=== PATIENT | female | born 1955 | race Caucasian/White ===

== ENCOUNTER 2016-07-22 09:00 | Observation (INO) | payer OTHER ==
[2016-07-22] MEDS ORDERED: LIDOCAINE 1% 5 ML SDV ONE (09:18)
[2016-07-22] MEDS ORDERED: LIDOCAINE 1% 5 ML SDV ID PRN (09:56)
[2016-07-22] MEDS ORDERED: LR 1,000 ML IV ONE (09:56)
[2016-07-22] MEDS ORDERED: fentaNYL 100 MCG/2 ML INJ ONE ×2 (10:14→11:18)
[2016-07-22] MEDS ORDERED: DEXAMETHASONE 4 MG/ML VIAL ONE (10:14)
[2016-07-22] MEDS ORDERED: PROPOFOL/EMULSION 500 MG/50 ML BOTTLE IV ONE (10:14)
[2016-07-22] MEDS ORDERED: MIDAZOLAM 2 MG/2 ML VIAL ONE (10:15)
[2016-07-22] MEDS ORDERED: ONDANSETRON 4 MG/2 ML VIAL ONE (10:15)
[2016-07-22] MEDS ORDERED: LIDOCAINE 2% 100 MG/5 ML SYR ONE (10:15)
[2016-07-22] MEDS ORDERED: LIDOCAINE 2% JELLY 5 ML TUBE ONE (10:15)
[2016-07-22] MEDS ORDERED: SILVER NITRATE APPLICATOR 1 APPL TP ONE (10:19)
[2016-07-22] MEDS ORDERED: KETOROLAC 30 MG/1 ML SDV ONE (10:27)
[2016-07-22] MEDS ORDERED: RANITIDINE 50 MG/2 ML VIAL ONE (10:29)
[2016-07-22] MEDS ORDERED: PROPOFOL 200 MG/20 ML VIAL ONE (10:46)
[2016-07-22] MEDS ORDERED: traMADol 50 MG TAB PO PRN (11:16)
--- NOTE | 2016-07-22 12:02 | GOP ---
[f rep st] OPERATIVE REPORT DATE OF OPERATION: 07/22/2016 SURGEON: Padmini Kendrick MD ANESTHESIA: IV general. ANESTHESIOLOGIST: Joao Dougherty. PREOPERATIVE DIAGNOSIS: Postmenopausal vaginal bleeding with thickened endometrial stripe and inconclusive biopsy in the office. POSTOPERATIVE DIAGNOSIS: Postmenopausal vaginal bleeding with thickened endometrial stripe and inconclusive biopsy in the office. PROCEDURE PERFORMED: Diagnostic hysteroscopy, dilation and curettage. FINDINGS: Small midline uterus. No obvious abnormal tissue noted on hysteroscopy, one possible small polyp in lower uterine segment on right. Scant tissue returned at the time of curettage. On 2nd insertion of hysteroscope there was noted to be a large fluid deficit at the time of insertion of camera concerning for uterine perforation. SPECIMENS: Endometrial curettings. ESTIMATED BLOOD LOSS: Minimal. INDICATIONS: The patient is a 60-year-old, G2, P0-0-2-0, who has been postmenopausal since age 49 and with a history of bilateral salpingo- oophorectomy at age 51. She was recently vacationing in [place] and had episode of heavy vaginal bleeding. This was her first episode of postmenopausal vaginal bleeding. She had an ultrasound demonstrating a thickened stripe to 9 mm. An endometrial biopsy was performed in the office with inconclusive results with possible abnormal papillary tissue. It was recommended the patient proceed with hysteroscopy, D and C for a definitive biopsy and diagnosis. Risks and benefits of the procedure were discussed including pain, bleeding, infection, inconclusive results with need for additional procedures, injury to uterus/vagina/cervix or other organs with possible need for additional procedures. DESCRIPTION OF PROCEDURE: The patient was brought to the operating room. A time-out was performed with all parties in agreement. IV general was initiated. She was prepped and draped in the normal sterile fashion in dorsal lithotomy with Jose Antonio stirrups. A final time-out was performed. A speculum was placed in the vagina. The cervix was grasped with a single-tooth tenaculum on the anterior lip. The cervix was easily dilated to 6 mm using Hegar dilators. The 5 mm diagnostic hysteroscope was introduced. The cavity appeared normal as noted with some possible polyp tissue at the right lower uterine segment. The fluid deficit at this time was 40 cc. The camera was removed. A small curette was then introduced, and there was scant return of tissues. As the goal of the procedure was to get a definitive diagnosis, the decision was made to proceed with repeat hysteroscopy and performed a D&C with the Truclear handpiece to get more extensive tissue sample. However, upon reintroducing the camera, it was noted that there was a very sudden increase in the fluid deficit from 40 mL to 480 mL, and the cavity was not distending, and there was concern for a uterine perforation, so the procedure was abandoned at this time. It is believed that the uterine perforation occurred during re-entry of the camera on the second attempt. All instruments were removed. Hemostasis was noted. The patient was awakened and brought to the recovery room in stable condition. She will be observed overnight in the hospital. COMPLICATIONS: Uterine perforation. FLUID DEFICIT: 480 mL normal saline /[id number]/MODL MTDD
[2016-07-22] MEDS ORDERED: OXYCODONE/APAP 5/325 TAB ONE ×2 (12:50→15:29)
--- NOTE | 2016-07-22 13:01 | PDGENHP ---
History and Physical - Chief Complaint observation after hysteroscopy - History of Present Illness Pt is a 60 yo who underwent hysteroscopy, D&C today for PMVB with thickened stripe and inconclusive biopsy in the office. Her procedure was complicated by uterine perforation during the 2nd insertion of the hysteroscope. History Information - Allergies/Home Medication List Allergies/Adverse Reactions: ibuprofen Allergy (Unknown, Verified 09/09/10 17:16) AVOIDS RT GASTRIC BYPASS HAYFEVER Allergy (Mild, Uncoded 09/09/10 17:16) STUFFY NOSE/ITCHY EYES Home Medications: CELEBREX 05/04/10 [Last Taken Unknown] Vicodin 05/04/10 [Last Taken Unknown] Estrace 07/20/16 [Last Taken Unknown] Herbals/Supplements -Info Only 07/20/16 [Last Taken Unknown] Tramadol HCl 07/20/16 [Last Taken Unknown] I have personally reviewed and updated: family history, medical history, social history, surgical history - Past Medical History hypertension Additional medical history: chronic back pain - Surgical History Reports: cholecystectomy Additional surgical history: Gastric bypass. Bilateral salpingo-oophorectomy. Tonsillectomy. Shoulder sugery. Wrist surgery - Family History Positive for: non-pertinent - Social History Smoking Status: Former smoker Alcohol Use: None Drug Use: None (, ARISTIDES) Review of Systems ROS: 10pt was reviewed & negative except for what was stated in HPI & below Physical Exam Temp Pulse Resp BP Pulse Ox 36.4 C 75 22 H 125/78 H 98 07/22/16 11:26 07/22/16 11:26 07/22/16 11:35 07/22/16 11:31 07/22/16 11:35 O2 (L/minute) 2 Constitutional: no apparent distress Ears, Nose, Mouth, Throat: moist mucous membranes Cardiovascular: regular rate and rhythym Respiratory: no respiratory distress Gastrointestinal: soft, non-tender abdomen, no palpable masses Skin: warm Musculoskeletal: full muscle strength Neurologic: AAOx3 Psychiatric: interacting appropriately Assessment & Plan Assessment: Uterine perforation during hysteroscopy. No reason to suspect visceral injury. Currently hemodynamically stable with normal abdominal exam and no vaginal bleeding. Plan: Monitor patient overnight Get CBC now and repeat tomorrow Clear liquid diet, ok to have regular dinner if continues to be asymptomatic Vitals q4h Monitor vaginal bleeding Continue home medications for pain control: Tramadol and Latonia Likely home tomorrow if no evidence of bleeding, infection.
[2016-07-22 15:33] LABS: % IMMATURE GRANULYOCYTES 0.3 % (0.0-1.1); ABSOLUTE IMMATURE GRANULOCYTES 0.03 10^3/uL (0.00-0.10); ADD DIFF? NO; ADD MORPH? NO; ADD SCAN? NO; ATYPICAL LYMPHOCYTE FLAG 10 (0-99); FRAGMENT RBC FLAG 0 (0-99); HEMATOCRIT 41.1 % (38.0-47.0); HEMOGLOBIN 13.4 g/dL (12.6-16.3); LEFT SHIFT FLG 0 (0-99); LIPEMIA HEMOLYSIS FLAG 80 (0-99); MEAN CELL HEMOGLOBIN 29.6 pg (27.9-34.1); MEAN CELL HEMOGLOBIN CONCENTR. 32.6 g/dL (32.4-36.7); MEAN CELL VOLUME 90.9 fL (81.5-99.8); MEAN PLATELET VOLUME 8.9 fL (8.7-11.7); PLATELET CLUMPS FLAG 0 (0-99); PLATELET COUNT 278 10^3/uL (150-400); RED BLOOD CELL COUNT 4.52 10^6/uL (4.18-5.33); RED CELL DISTRIBUTION WIDTH 14.8 % (11.5-15.2)
[2016-07-22] MEDS: HYDROCODONE/APAP 5/325 TAB PO PRN (22:08)
[2016-07-23 05:23] LABS: HEMATOCRIT 37.2 % (38.0-47.0); HEMOGLOBIN 12.2 g/dL (12.6-16.3); MEAN CELL HEMOGLOBIN CONCENTR. 32.8 g/dL (32.4-36.7); MEAN CELL VOLUME 91.4 fL (81.5-99.8); RED BLOOD CELL COUNT 4.07 10^6/uL (4.18-5.33); RED CELL DISTRIBUTION WIDTH 14.8 % (11.5-15.2)
[2016-07-23] MEDS: HYDROCODONE/APAP 5/325 TAB PO PRN ×2 (06:46→10:30)
[2016-07-23 08:08] VITALS: BP 132/68; PULSE 87; RESP 12; TEMP 97.9; O2SAT 95
--- NOTE | 2016-07-23 09:29 | SOAPPROG ---
SOAP Progress Note Assessment/Plan: Assessment: POD#1 s/p hysteroscopy, D&C complicated by uterine perforation Today doing well including no vaginal bleeding, no significant pain, tolerating regular diet, normal abdominal exam. H/H appropriate given IV fluids, no evidence of intra-abdominal bleeding WBC appropriate given s/p surgery, no significant increase suggestive of visceral injury Plan: Discharged home Given strict precautions, see discharge summary 07/23/16 09:25 Subjective: Slept well. Took 1 norco last night and one this morning for some lower abdominal soreness, pain well controlled with this regimen. No vaginal bleeding. Is passing gas but no BM, states this is normal for her not to go daily. Tolerated eggs this morning, no nausea or vomiting. Overall feeling really well, ready to go home. Objective: Vital Signs Temp Pulse Resp BP Pulse Ox 36.6 C 87 12 132/68 H 95 07/23/16 08:00 07/23/16 08:00 07/23/16 08:00 07/23/16 08:00 07/23/16 08:00 Laboratory Results 07/23/16 04:55 07/22/16 07/23/16 07/24/16 05:59 05:59 05:59 Intake Total 1890 Output Total 1355 Balance 535 Gen: NAD Resp: unlabored CV: reg rate Abd: soft, nontender, non distended Ext: no edema, warm ICD10 Worksheet Patient Problems: Problems Problem Status Onset Postmenopausal vaginal bleeding Acute
--- NOTE | 2016-07-23 09:50 | GDS ---
[f rep st] DISCHARGE SUMMARY ADMISSION DIAGNOSIS: Observation after hysteroscopy, dilation and curettage procedure, complicated by uterine perforation. DISCHARGE DIAGNOSIS: Observation after hysteroscopy, dilation and curettage procedure, complicated by uterine perforation. PROCEDURES: Hysteroscopy, dilation and curettage. CONSULTATIONS: None. HOSPITAL COURSE: The patient was brought to the hospital on the morning of July 22 for a scheduled hysteroscopy, dilation and curettage, as she had recently had her first episode of postmenopausal vaginal bleeding. She had been found to have a thickened uterine stripe of 9 mm. A biopsy in the office was inconclusive and was suggestive of possible abnormal cells, so the decision was made to proceed with hysteroscopy D and C to get a better tissue sample. The procedure was complicated by a uterine perforation that was believed to have occurred during the 2nd placement of the hysteroscope. The procedure was immediately abandoned upon this occurrence. The decision was made to admit the patient overnight for observation. While in the hospital, she did very well. She had minimal pain. No vaginal bleeding. She was tolerating a regular diet, and no laboratory evidence of intraabdominal injury or visceral injury. DISCHARGE INSTRUCTIONS: She will be discharged home. She was given strict precautions at home for no heavy lifting, no soaking in the bathtub, and no intercourse for 4 weeks. She was also given precautions to call for any worsening vaginal bleeding, abdominal pain, nausea, vomiting, fevers, chills, or any other concerning symptoms. DISCHARGE MEDICATIONS: [place] 5/325 mg, #30 tablets, refills 0. Of note, the patient cannot take NSAIDS as had gastric bypass surgery, and she currently takes both Vicodin and tramadol at home for her back pain. FOLLOWUP: She will follow up in the office with Dr. Kendrick in 2-3 weeks. /[id number]/MODL MTDD
== END 2016-07-23 10:32 | disposition home or self-care (01) ==
LOC: FPAT 09:00 → F3E 11:15
PROVIDERS: ADMIT Obstetrics & Gynecology; ATTEND Obstetrics & Gynecology
PROC: 0UDB7ZX Extraction of Endometrium, Via Natural or Artificial Opening, Diagnostic (ICD-10-PCS; principal; 2016-07-22 10:30)
PROC: 0UJD8ZZ Inspection of Uterus and Cervix, Via Natural or Artificial Opening Endoscopic (ICD-10-PCS; principal; 2016-07-22 10:30)
DX: N93.9 Abnormal uterine and vaginal bleeding, unspecified (principal); Z78.0 Asymptomatic menopausal state; N99.71 Accidental puncture and laceration of a genitourinary system organ or structure during a genitourinary system procedure; Z98.84 Bariatric surgery status; Z87.891 Personal history of nicotine dependence
CPT/HCPCS: 58120; 58555; C1782; G0378; J1100; J1885; J2001; J2250; J2405; J2704; J2780; J3010

== ENCOUNTER → 2017-01-31 | Outpatient (CLI) | payer OTHER | LOC: BMCIMAGING 08:24 | PROVIDERS: ATTEND Obstetrics & Gynecology | DX: Z12.31 Encounter for screening mammogram for malignant neoplasm of breast (principal); Z80.3 Family history of malignant neoplasm of breast | CPT/HCPCS: G0202 ==

== ENCOUNTER → 2018-02-07 | Outpatient (CLI) | payer OTHER | LOC: BMCIMAGING 07:49 | PROVIDERS: ATTEND Obstetrics & Gynecology | DX: Z12.31 Encounter for screening mammogram for malignant neoplasm of breast (principal) ==

== ENCOUNTER → 2018-09-19 | Outpatient (CLI) | payer OTHER | LOC: FIMAGING 11:00 ==